=== PATIENT | male | born 1960 | race Caucasian/White ===

== ENCOUNTER 2019-04-29 14:37 | Emergency (ER) | payer OTHER ==
[~2019-04-29] VITALS: Ht 172.7 cm; Wt 81.6 kg
[2019-04-29 14:42] VITALS: BP 129/82
--- NOTE | 2019-04-29 14:44 | NUR ---
PT KIP ALS TO ER BED 6
--- NOTE | 2019-04-29 15:59 | NUR ---
PT BIBA VIA GURNEY C/O LEFT SHOULDER PAIN UPON MOVEMENT AND TINGLING SENSATION ON UE/LE .ETOH DENIES PREVIOUS ILLNESSES.HXS DEPRESSION.
--- NOTE | 2019-04-29 16:15 | NUR ---
DR ZIEGLER AT BEDSIDE EVALUATING PT.
[2019-04-29] MEDS ORDERED: KETOROLAC 60 MG/2 ML VIAL IM ONE (16:20)
[2019-04-29] MEDS ORDERED: LORazepam 1 MG TAB PO ONE (17:05)
--- NOTE | 2019-04-29 17:24 | NUR ---
Pt c/o anxiety, and requesting to speak with ER MD. Dr Castro made aware. Administered ativan PO as ordered.
--- NOTE | 2019-04-29 17:25 | NUR ---
Substance abuse packet given. Homeless/retirement resource packet provided, homeless waiver signed. Pt was given sandwich/meal. Pt with appropriate clothes for weather.
--- NOTE | 2019-04-29 17:29 | NUR ---
DR ZIEGLER AT BEDSIDE TALKING TO PT REGARDING HIS CASE.
[2019-04-29 17:30] VITALS: BP 120/70
--- NOTE | 2019-04-29 17:30 | NUR ---
Patient discharged with v/s stable. Written and verbal after care instructions given and explained. Patient alert, oriented and verbalized understanding of instructions. Ambulatory with steady gait. All questions addressed prior to discharge. ID band removed. Patient advised to follow up with PMD. Rx of atarax, motrin given. Patient educated on indication of medication including possible reaction and side effects. Opportunity to ask questions provided and answered.
== END 2019-04-29 17:30 | disposition home or self-care (01) ==
LOC: MED 14:37
DX: F10.129 Alcohol abuse with intoxication, unspecified (principal); F41.9 Anxiety disorder, unspecified
CPT/HCPCS: 96372; 99283; J1885

== ENCOUNTER 2019-04-30 18:29 | Emergency (ER) | payer OTHER ==
[~2019-04-30] VITALS: Ht 177.8 cm; Wt 77.1 kg
--- NOTE | 2019-04-30 18:29 | NUR ---
Patient JOHNYue SAMUEL, triaged by RN. Waiting for an available bed.
--- NOTE | 2019-04-30 19:05 | NUR ---
Patient transferred to bed 9. RN evaluating patient at bedside.
[2019-04-30 19:06] VITALS: BP 123/74
--- NOTE | 2019-04-30 19:18 | NUR ---
PT BIBA FOR ETOH SINCE TODAY. PT WAS FOUND OUTSIDE OF A [facility]. PT ADMITS TO DRINKING MORE THAN NORMAL TODAY. PT HAS SOME SMALL ABRASIONS ON HIS FACE. PT UNCLEAR IF INJURIES WERE FROM TODAY. PT UNABLE TO VERBALIZE ANY PAST MEDICAL HX OR MEDICATION HX.
--- NOTE | 2019-04-30 19:52 | NUR ---
PATIENT REQUESTING SOMETHING FOR PAIN. ERMD AWARE.
--- NOTE | 2019-04-30 20:29 | NUR ---
PT REFUSED BLOOD DRAW
[2019-04-30] MEDS ORDERED: LORazepam 2 MG/ML VIAL IM ONE (21:05)
[2019-04-30] MEDS ORDERED: diphenhydrAMINE 50 MG/ML VIAL IM ONE (21:05)
[2019-04-30] MEDS ORDERED: HALOPERIDOL IM 5 MG/ML VIAL IM ONE (21:05)
--- NOTE | 2019-05-01 00:13 | NUR ---
PT SLEEPING IN BED AT THIS TIME. BOTH RAILS UP FOR SAFETY. VSS
--- NOTE | 2019-05-01 02:06 | NUR ---
PT IS CURRENTLY SLEEPING IN HIS BED WITH BOTH SIDE RAILS UP FOR SAFETY. ALL VSS.
--- NOTE | 2019-05-01 04:34 | NUR ---
PT IS CURRENTLY SLEEPING IN HIS BED WITH BOTH SIDE RAILS UP FOR SAFETY. ALL VSS. VISIBLE CHEST RISE AND FALL.
--- NOTE | 2019-05-01 06:19 | NUR ---
PT AWAKE AND URINATED. TOO UNSTABLE TO WALK TO RESTROOM ON HIS OWN AT THIS TIME. BREAKFAST TRAY ORDERED.
[2019-05-01] MEDS ORDERED: KETOROLAC 60 MG/2 ML VIAL IM ONE ×2 (06:34→06:35)
--- NOTE | 2019-05-01 07:08 | NUR ---
RECEIVED REPORT FROM DOMINGO LOPEZ. TRANSFER OF CARE AT THIS TIME
[2019-05-01] MEDS ORDERED: LORazepam 1 MG TAB PO ONE (07:25)
--- NOTE | 2019-05-01 07:28 | NUR ---
PT SITTING UPRIGHT IN BED, RECEIVED BREAKFAST. WILL CONTINUE TO MONITOR
--- NOTE | 2019-05-01 07:43 | NUR ---
PT STATES HE IS IN PAIN, UNABLE TO LOCATE PAIN/GIVE THE PAIN A NUMBER.
--- NOTE | 2019-05-01 08:09 | NUR ---
PT AMBULATED TO RESTROOM
[2019-05-01 08:18] VITALS: BP 121/78
--- NOTE | 2019-05-01 08:18 | NUR ---
Patient discharged with v/s stable. Written and verbal after care instructions given and explained. Patient verbalized understanding. Ambulatory with steady gait. All questions addressed prior to discharge. Advised to follow up with PMD.
--- NOTE | 2019-05-01 09:04 | NUR ---
LATE ENTRY--TRANSPORTATION PROVIDED VIA BUS PASS.
== END 2019-05-01 08:18 | disposition home or self-care (01) ==
LOC: MED 18:29
DX: F10.129 Alcohol abuse with intoxication, unspecified (principal)
CPT/HCPCS: 96372; 99284; J1200; J1630; J1885; J2060